=== PATIENT | female | born 1945 | race African-American/Black ===

== ENCOUNTER → 2017-09-19 | Outpatient (CLI) | payer MEDICARE, OTHER, MEDICAID | END | disposition home or self-care (01) | LOC: C/S 15:54 | DX: R51 Headache (principal); C85.90 Non-Hodgkin lymphoma, unspecified, unspecified site | CPT/HCPCS: 70450 ==

== ENCOUNTER 2018-02-20 09:54 | Inpatient (IN) | payer MEDICARE, OTHER, MEDICAID ==
[2018-02-20] MEDS: IPRATROPIUM (NEB) 0.5 MG/2.5 ML AMP INH (10:15)
[2018-02-20] MEDS: ALBUTEROL 0.5% (NEB) 2.5 MG/0.5 ML AMP INH (10:15)
[2018-02-20] MEDS: SOD CHLORIDE 0.9% 1,000 ML IV ×2 (10:27→14:01)
[2018-02-20 10:36] LABS: AADO2 Arterial 98.6 mmHg (7.0-24.0); Allen Test ACCEPTAB; Arterial Base Excess -0.5 mmol/L (-3.0-3); Arterial Blood Gas Oxygen Sat 98.5 mmHG (95.0-100.0); Arterial COHb 2.1 % (0.0-3.0); Arterial Fraction of Oxyhgb 96.1 % (93.0-99.0); Arterial HCO3 23.8 mmol/L (22.0-26.0); Arterial MetHb 0.3 % (0.0-1.5); Arterial Total Hemglobin 13.1 g/dl (12.0-18.0); Arterial pCO2 38.3 mmhg (35-45); Blood Gas IEPAP 15/5; Blood Gas PS 10; MODE MASK - BIPAP; Site Left Radial
[2018-02-20 10:38] LABS: WHITE BLOOD COUNT 2.7 10^3/ul (4.8-10.8)
[2018-02-20 10:38] LABS: ABNORMAL IP MESSAGE 1; HEMATOCRIT 41.2 % (37.0-47.0); HEMOGLOBIN 13.1 g/dl (12.0-16.0); MEAN CORPUSCULAR HEMOGLOBIN 28.3 pg (29.0-33.0); MEAN CORPUSCULAR HGB CONC 31.8 g/dl (32.0-37.0); MEAN PLATELET VOLUME 11.1 fl (7.4-10.4); PLATELET COUNT 235 10^3/UL (140-415); RED BLOOD COUNT 4.63 10^6/ul (4.20-5.40); RED CELL DISTRIBUTION WIDTH 14.1 % (11.5-14.5)
[2018-02-20 10:40] LABS: ADD MAN DIFF? YES; POSITIVE DIFF @See below
[2018-02-20 10:57] LABS: INR 0.99; PROTIME 13.2 Sec (11.9-14.9)
[2018-02-20 10:58] LABS: PARTIAL THROMBOPLASTIN TIME 31.9 Sec (23.0-35.0)
[2018-02-20 11:02] LABS: ANISOCYTOSIS 1+ (0-0); BASOPHILS % (M) 3 % (0-2); EOSINOPHILS % (M) 5 % (0-7); LYMPHOCYTES #M 0.7 10^3/ul (0.8-2.9); LYMPHOCYTES % (M) 29 % (15-51); MICROCYTOSIS 1+ (0-0); MONOCYTE #M 0.4 10^3/ul (0.3-0.9); MONOCYTES % (M) 18 % (0-11); PLATELET ESTIMATE NORMAL; REACTIVE LYMPHOCYTES #M 0.1 10^3/ul (0.0-0.0); REACTIVE LYMPHOCYTES% (M) 7 % (0-0); SEGMENTED NEUTROPHILS (M) % 38 % (39-77); SMUDGE%M 19 % (0-0)
[2018-02-20 11:04] LABS: ALANINE AMINOTRANSFERASE 20 IU/L (13-69); ALBUMIN 3.5 g/dl (3.3-4.9); ALBUMIN/GLOBULIN RATIO 1.12; AMYLASE 57 U/L (11-123); ANION GAP 12 (5-13); ASPARTATE AMINO TRANSFERASE 32 IU/L (15-46); BILIRUBIN,INDIRECT 0.1 mg/dl (0-1.1); BILIRUBIN,TOTAL 0.1 mg/dl (0.2-1.3); BLOOD UREA NITROGEN 25 mg/dl (7-20); CALCIUM 10.2 mg/dl (8.4-10.2); CARBON DIOXIDE 27 mmol/L (21-31); CHLORIDE 104 mmol/L (97-110); GLUCOSE 130 mg/dl (70-220); LIPASE 59 U/L (23-300); POTASSIUM 3.8 mmol/L (3.5-5.1); SODIUM 143 mmol/L (135-144); TOTAL PROTEIN 6.6 g/dl (6.1-8.1)
[2018-02-20 11:07] LABS: ALKALINE PHOSPHATASE < 20 IU/L (42-121)
[2018-02-20 11:16] LABS: TROPONIN-I < 0.012 ng/ml (0.000-0.120)
[2018-02-20 11:57] LABS: ADD UMIC YES; UR ASCORBIC ACID NEGATIVE (NEGATIVE); UR BACTERIA FEW /HPF (NONE SEEN); UR BILIRUBIN (Dip) NEGATIVE (NEGATIVE); UR BLOOD (Dip) NEGATIVE (NEGATIVE); UR CLARITY SLIGHTLY CLOUDY (CLEAR); UR COLOR STRAW (YELLOW); UR GLUCOSE (Dip) NEGATIVE (NEGATIVE); UR KETONES (Dip) NEGATIVE (NEGATIVE); UR LEUKOCYTE ESTERASE (Dip) NEGATIVE Leu/ul (NEGATIVE); UR NITRITE (Dip) NEGATIVE (NEGATIVE); UR RBC 4 /HPF (0-5); UR SPECIFIC GRAVITY (Dip) 1.008 (1.003-1.030); UR SQUAMOUS EPITHELIAL CELL FEW /HPF (FEW); UR TOTAL PROTEIN (Dip) 1+ mg/dl (NEGATIVE); UR UROBILINOGEN (Dip) NEGATIVE (NEGATIVE); UR WBC 1 /HPF (0-5)
[2018-02-20] MEDS: HYDROmorphONE 2 MG/ML SYG IV (12:12)
[2018-02-20] MEDS: ONDANSETRON 4 MG INJ IV (12:12)
[2018-02-20] MEDS: LEVOFLOXACIN 750MG/D5W (PMX) 150 ML IVPB (14:02)
[2018-02-20] MEDS ORDERED: NACL 0.9% 3 ML SYG IV (15:30)
[2018-02-20] MEDS: VANCOMYCIN 1 GM (PMX) 250 ML IVPB (15:56)
[2018-02-20] MEDS ORDERED: CREON (24K-76K-120K) 1 CAP PO (17:30)
[2018-02-20] MEDS: CREON (12k-38k-60k) 1 CAP PO (17:45)
[2018-02-20] MEDS: LEVALBUTEROL (NEB) 0.63 MG/3 ML AMP HHN (20:45)
[2018-02-20] MEDS: ROPINIROLE 0.25 MG TAB PO (20:59)
[2018-02-20] MEDS: morphine 2 MG INJ IV (22:13)
[2018-02-21] MEDS: LEVALBUTEROL (NEB) 0.63 MG/3 ML AMP HHN ×2 (03:30→14:09)
[2018-02-21] MEDS: morphine 2 MG INJ IV ×3 (04:47→21:27)
[2018-02-21 05:30] LABS: WHITE BLOOD COUNT 2.4 10^3/ul (4.8-10.8)
[2018-02-21 05:30] LABS: ABNORMAL IP MESSAGE 1; HEMOGLOBIN 10.4 g/dl (12.0-16.0); MEAN CORPUSCULAR HEMOGLOBIN 28.3 pg (29.0-33.0); MEAN CORPUSCULAR HGB CONC 31.5 g/dl (32.0-37.0); MEAN CORPUSCULAR VOLUME 89.9 fl (82.0-101.0); MEAN PLATELET VOLUME 11.1 fl (7.4-10.4); PLATELET COUNT 184 10^3/UL (140-415); RED BLOOD COUNT 3.67 10^6/ul (4.20-5.40); RED CELL DISTRIBUTION WIDTH 14.2 % (11.5-14.5)
[2018-02-21 05:48] LABS: ADD MAN DIFF? YES; POSITIVE DIFF @See below
[2018-02-21 06:01] LABS: ANION GAP 6 (5-13); BLOOD UREA NITROGEN 20 mg/dl (7-20); CALCIUM 9.1 mg/dl (8.4-10.2); CARBON DIOXIDE 25 mmol/L (21-31); CHLORIDE 111 mmol/L (97-110); CREATININE 0.97 mg/dl (0.44-1.00); GLUCOSE 90 mg/dl (70-220); SODIUM 142 mmol/L (135-144)
[2018-02-21] MEDS: PANTOPRAZOLE (EC) 40 MG TAB PO (06:02)
[2018-02-21 07:10] LABS: ANISOCYTOSIS 1+ (0-0); BAND NEUTROPHILS #M 0.2 10^3/ul (0.0-0.6); BAND NEUTROPHILS % (M) 9 % (0-4); BASOPHILS % (M) 2 % (0-2); EOSINOPHILS % (M) 1 % (0-7); GIANT THROMBO% (M) 5 % (0-0); LYMPHOCYTES #M 0.5 10^3/ul (0.8-2.9); LYMPHOCYTES % (M) 22 % (15-51); MICROCYTOSIS 1+ (0-0); MONOCYTE #M 0.4 10^3/ul (0.3-0.9); MONOCYTES % (M) 18 % (0-11); MYELOCYTES % (M) 3 % (0-0); OVALOCYTES 1+ (0-0); PLATELET ESTIMATE NORMAL; POIKILOCYTOSIS 2+ (0-0); SEG NEUT #M 1.1 10^3/ul (1.6-7.5); SEGMENTED NEUTROPHILS (M) % 45 % (39-77); SMUDGE%M 8 % (0-0)
[2018-02-21] MEDS: LOSARTAN 50 MG TAB PO (08:24)
[2018-02-21] MEDS: CREON (12k-38k-60k) 1 CAP PO ×3 (08:24→17:59)
[2018-02-21] MEDS: MIRTAZAPINE 15 MG TAB PO (08:25)
[2018-02-21] MEDS: ROPINIROLE 0.25 MG TAB PO ×2 (08:25→20:24)
[2018-02-21] MEDS: AMLODIPINE 10 MG TAB PO (08:26)
[2018-02-21] MEDS: ENOXAPARIN 30 MG/0.3 ML SYG SC (08:27)
[2018-02-21] MEDS ORDERED: AMLODIPINE BES PO (09:00)
[2018-02-21] MEDS ORDERED: [UNRECOGNIZED DRUG - OTHER] PO (09:00)
[2018-02-21] MEDS ORDERED: OLMESARTAN MED PO (09:00)
[2018-02-21] MEDS: LIDOCAINE 1% (MPF) 5 ML VIAL (12:25)
[2018-02-21 13:35] LABS: FLD MN% 68.1 %; FLD PMN% 31.9 %; FLD RBC 66000 /uL; FLD WBC 461 /cmm
[2018-02-21 13:40] LABS: FLUID LD 1360 U/L; FLUID TOTAL PROTEIN 4.4 g/dl; FLUID TYPE THORACENTESIS FLUID
[2018-02-21 13:41] LABS: FLUID GLUCOSE 50 mg/dl; FLUID TYPE THORACENTESIS FLUID
[2018-02-21 13:55] LABS: FLD TYPE PLEURAL
[2018-02-21 13:55] LABS: FLD CLARITY BLOODY; FLD COLOR RED
[2018-02-21] MEDS: IOHEXOL 14.3 MG(I)/ML (ADULT) BTL PO (14:00)
[2018-02-21] MEDS: IOHEXOL 300MG/ML 150 ML BTL (14:33)
[2018-02-21] MEDS: SOD CHLORIDE 0.9% 100 ML (14:33)
[2018-02-21] MEDS: FLUTICASONE/VILANTEROL 200-25 INH DEVICE INH (17:59)
[2018-02-22] MEDS: LORAZEPAM 2 MG INJ IV (01:25)
[2018-02-22 05:38] LABS: ABNORMAL IP MESSAGE 1; HEMATOCRIT 34.9 % (37.0-47.0); HEMOGLOBIN 11.3 g/dl (12.0-16.0); MEAN CORPUSCULAR HEMOGLOBIN 28.5 pg (29.0-33.0); MEAN CORPUSCULAR HGB CONC 32.4 g/dl (32.0-37.0); MEAN CORPUSCULAR VOLUME 87.9 fl (82.0-101.0); MEAN PLATELET VOLUME 11.3 fl (7.4-10.4); PLATELET COUNT 206 10^3/UL (140-415); RED BLOOD COUNT 3.97 10^6/ul (4.20-5.40); RED CELL DISTRIBUTION WIDTH 14.2 % (11.5-14.5)
[2018-02-22 05:38] LABS: WHITE BLOOD COUNT 2.3 10^3/ul (4.8-10.8)
[2018-02-22] MEDS: PANTOPRAZOLE (EC) 40 MG TAB PO (05:44)
[2018-02-22 05:52] LABS: ADD MAN DIFF? YES; POSITIVE DIFF @See below
[2018-02-22 06:16] LABS: ANION GAP 9 (5-13); BLOOD UREA NITROGEN 18 mg/dl (7-20); CALCIUM 9.6 mg/dl (8.4-10.2); CARBON DIOXIDE 25 mmol/L (21-31); CHLORIDE 109 mmol/L (97-110); CREATININE 0.94 mg/dl (0.44-1.00); GLUCOSE 83 mg/dl (70-220); POTASSIUM 3.5 mmol/L (3.5-5.1); SODIUM 143 mmol/L (135-144)
[2018-02-22] MEDS: CREON (12k-38k-60k) 1 CAP PO ×3 (08:10→17:40)
[2018-02-22] MEDS: FLUTICASONE/VILANTEROL 200-25 INH DEVICE INH (08:38)
[2018-02-22] MEDS: LOSARTAN 50 MG TAB PO (08:39)
[2018-02-22] MEDS: AMLODIPINE 10 MG TAB PO (08:39)
[2018-02-22] MEDS: ROPINIROLE 0.25 MG TAB PO ×2 (08:40→21:49)
[2018-02-22] MEDS: MIRTAZAPINE 15 MG TAB PO (08:40)
[2018-02-22] MEDS: ENOXAPARIN 30 MG/0.3 ML SYG SC (08:49)
[2018-02-22 11:21] LABS: ANISOCYTOSIS 2+ (0-0); BAND NEUTROPHILS #M 0.2 10^3/ul (0.0-0.6); BAND NEUTROPHILS % (M) 12 % (0-4); BASOPHILS % (M) 2 % (0-2); BURR CELLS 3+ (0-0); EOSINOPHILS % (M) 6 % (0-7); GIANT THROMBO% (M) 2 % (0-0); LYMPHOCYTES #M 0.5 10^3/ul (0.8-2.9); LYMPHOCYTES % (M) 22 % (15-51); MICROCYTOSIS 2+ (0-0); MONOCYTE #M 0.2 10^3/ul (0.3-0.9); MONOCYTES % (M) 13 % (0-11); PLATELET ESTIMATE NORMAL; POIKILOCYTOSIS 3+ (0-0); POLYCHROMASIA 1+ (0-0); REACTIVE LYMPHOCYTES% (M) 4 % (0-0); SEG NEUT #M 0.9 10^3/ul (1.6-7.5); SEGMENTED NEUTROPHILS (M) % 41 % (39-77); SMUDGE%M 5 % (0-0); SPHEROCYTES 1+ (0-0)
[2018-02-22] MEDS ORDERED: DOCUSATE SODIUM 100 MG CAP PO (21:00)
[2018-02-22] MEDS: BISACODYL (EC) 5 MG TAB PO (21:49)
[2018-02-22] MEDS: LUBIPROSTONE 8 MCG CAPSULE PO (21:50)
[2018-02-22] MEDS: morphine 2 MG INJ IV (23:33)
[2018-02-23] MEDS: LORAZEPAM 2 MG INJ IV (04:35)
[2018-02-23] MEDS: PANTOPRAZOLE (EC) 40 MG TAB PO (05:49)
[2018-02-23] MEDS: CREON (12k-38k-60k) 1 CAP PO ×3 (07:37→17:57)
[2018-02-23] MEDS: LUBIPROSTONE 8 MCG CAPSULE PO ×2 (08:55→20:45)
[2018-02-23] MEDS: LOSARTAN 50 MG TAB PO (08:57)
[2018-02-23] MEDS: AMLODIPINE 10 MG TAB PO (08:58)
[2018-02-23] MEDS: MIRTAZAPINE 15 MG TAB PO (08:58)
[2018-02-23] MEDS: ROPINIROLE 0.25 MG TAB PO ×2 (08:58→20:45)
[2018-02-23] MEDS: FLUTICASONE/VILANTEROL 200-25 INH DEVICE INH (08:59)
[2018-02-23] MEDS: ENOXAPARIN 30 MG/0.3 ML SYG SC (09:00)
[2018-02-23] MEDS: LEVALBUTEROL (NEB) 0.63 MG/3 ML AMP HHN (09:07)
[2018-02-23] MEDS: BISACODYL (EC) 5 MG TAB PO (17:57)
[2018-02-24] MEDS: LORAZEPAM 2 MG INJ IV (00:13)
[2018-02-24 06:25] LABS: ABNORMAL IP MESSAGE 1; HEMATOCRIT 38.3 % (37.0-47.0); HEMOGLOBIN 12.1 g/dl (12.0-16.0); MEAN CORPUSCULAR HEMOGLOBIN 27.8 pg (29.0-33.0); MEAN CORPUSCULAR HGB CONC 31.6 g/dl (32.0-37.0); MEAN CORPUSCULAR VOLUME 87.8 fl (82.0-101.0); MEAN PLATELET VOLUME 11.4 fl (7.4-10.4); PLATELET COUNT 225 10^3/UL (140-415); RED BLOOD COUNT 4.36 10^6/ul (4.20-5.40); RED CELL DISTRIBUTION WIDTH 13.7 % (11.5-14.5)
[2018-02-24 06:25] LABS: WHITE BLOOD COUNT 2.6 10^3/ul (4.8-10.8)
[2018-02-24] MEDS: PANTOPRAZOLE (EC) 40 MG TAB PO (06:40)
[2018-02-24 06:44] LABS: ADD MAN DIFF? YES; POSITIVE DIFF @See below
[2018-02-24 06:50] LABS: ANION GAP 6 (5-13); BLOOD UREA NITROGEN 20 mg/dl (7-20); CALCIUM 9.4 mg/dl (8.4-10.2); CARBON DIOXIDE 26 mmol/L (21-31); CHLORIDE 112 mmol/L (97-110); CREATININE 1.14 mg/dl (0.44-1.00); GLUCOSE 89 mg/dl (70-220); SODIUM 144 mmol/L (135-144)
[2018-02-24] MEDS: CREON (12k-38k-60k) 1 CAP PO ×3 (07:55→17:55)
[2018-02-24 08:18] LABS: ANISOCYTOSIS 1+ (0-0); BAND NEUTROPHILS % (M) 3 % (0-4); EOSINOPHILS % (M) 2 % (0-7); GIANT THROMBO% (M) 2 % (0-0); LYMPHOCYTES #M 0.7 10^3/ul (0.8-2.9); LYMPHOCYTES % (M) 27 % (15-51); MICROCYTOSIS 1+ (0-0); MONOCYTE #M 0.5 10^3/ul (0.3-0.9); MONOCYTES % (M) 20 % (0-11); PLATELET ESTIMATE NORMAL; SEG NEUT #M 1.2 10^3/ul (1.6-7.5); SEGMENTED NEUTROPHILS (M) % 48 % (39-77); SMUDGE%M 16 % (0-0)
[2018-02-24] MEDS: MIRTAZAPINE 15 MG TAB PO (08:27)
[2018-02-24] MEDS: ROPINIROLE 0.25 MG TAB PO ×2 (08:27→21:02)
[2018-02-24] MEDS: ACETAMINOPHEN 325 MG TAB PO (08:27)
[2018-02-24] MEDS: LOSARTAN 50 MG TAB PO (08:27)
[2018-02-24] MEDS: LUBIPROSTONE 8 MCG CAPSULE PO ×2 (08:27→21:02)
[2018-02-24] MEDS: FLUTICASONE/VILANTEROL 200-25 INH DEVICE INH (08:28)
[2018-02-24] MEDS: AMLODIPINE 10 MG TAB PO (08:28)
[2018-02-24] MEDS: morphine 2 MG INJ IV (08:34)
[2018-02-24] MEDS: ENOXAPARIN 30 MG/0.3 ML SYG SC (08:39)
[2018-02-24] MEDS ORDERED: morphine LIQ (10 MG/5 ML) CUP PO (16:00)
[2018-02-24] MEDS: ONDANSETRON 4 MG INJ IV ×2 (16:49→17:56)
[2018-02-25] MEDS: LORAZEPAM 2 MG INJ IV ×2 (00:58→08:54)
[2018-02-25] MEDS: BISACODYL (EC) 5 MG TAB PO (01:04)
[2018-02-25] MEDS: PANTOPRAZOLE (EC) 40 MG TAB PO (05:32)
[2018-02-25] MEDS: CREON (12k-38k-60k) 1 CAP PO ×3 (07:33→17:06)
[2018-02-25] MEDS: MIRTAZAPINE 15 MG TAB PO (08:32)
[2018-02-25] MEDS: ROPINIROLE 0.25 MG TAB PO ×2 (08:33→20:38)
[2018-02-25] MEDS: LUBIPROSTONE 8 MCG CAPSULE PO ×2 (08:33→20:38)
[2018-02-25] MEDS: ENOXAPARIN 30 MG/0.3 ML SYG SC (08:34)
[2018-02-25] MEDS: FLUTICASONE/VILANTEROL 200-25 INH DEVICE INH (08:37)
[2018-02-25] MEDS: LOSARTAN 50 MG TAB PO (11:38)
[2018-02-25] MEDS: AMLODIPINE 10 MG TAB PO (11:39)
[2018-02-25] MEDS: ONDANSETRON 4 MG INJ IV ×2 (15:12→21:08)
[2018-02-25] MEDS: morphine 2 MG INJ IV (20:38)
[2018-02-26] MEDS: PROMETHAZINE 25 MG TAB PO (00:15)
[2018-02-26] MEDS: morphine 2 MG INJ IV ×3 (01:05→20:07)
[2018-02-26] MEDS: ONDANSETRON 4 MG INJ IV ×2 (05:08→20:07)
[2018-02-26] MEDS: PANTOPRAZOLE (EC) 40 MG TAB PO (05:08)
[2018-02-26 05:37] LABS: ABNORMAL IP MESSAGE 1; HEMATOCRIT 37.3 % (37.0-47.0); MEAN CORPUSCULAR HEMOGLOBIN 28.2 pg (29.0-33.0); MEAN CORPUSCULAR HGB CONC 32.2 g/dl (32.0-37.0); MEAN CORPUSCULAR VOLUME 87.6 fl (82.0-101.0); MEAN PLATELET VOLUME 10.7 fl (7.4-10.4); PLATELET COUNT 222 10^3/UL (140-415); RED BLOOD COUNT 4.26 10^6/ul (4.20-5.40); RED CELL DISTRIBUTION WIDTH 13.9 % (11.5-14.5)
[2018-02-26 05:37] LABS: WHITE BLOOD COUNT 3.4 10^3/ul (4.8-10.8)
[2018-02-26 05:38] LABS: ADD MAN DIFF? YES; POSITIVE DIFF @See below
[2018-02-26 05:56] LABS: ANION GAP 8 (5-13); BLOOD UREA NITROGEN 25 mg/dl (7-20); CALCIUM 9.3 mg/dl (8.4-10.2); CARBON DIOXIDE 23 mmol/L (21-31); CHLORIDE 112 mmol/L (97-110); CREATININE 1.42 mg/dl (0.44-1.00); GLUCOSE 89 mg/dl (70-220); POTASSIUM 3.8 mmol/L (3.5-5.1); SODIUM 143 mmol/L (135-144)
[2018-02-26 07:20] LABS: ANISOCYTOSIS 2+ (0-0); BAND NEUTROPHILS % (M) 2 % (0-4); BASOPHILS % (M) 2 % (0-2); BURR CELLS 1+ (0-0); EOSINOPHILS % (M) 3 % (0-7); LYMPHOCYTES #M 0.8 10^3/ul (0.8-2.9); LYMPHOCYTES % (M) 26 % (15-51); MICROCYTOSIS 1+ (0-0); MONOCYTE #M 0.3 10^3/ul (0.3-0.9); MONOCYTES % (M) 9 % (0-11); OVALOCYTES 1+ (0-0); PLATELET ESTIMATE NORMAL; POIKILOCYTOSIS 2+ (0-0); POLYCHROMASIA 1+ (0-0); REACTIVE LYMPHOCYTES% (M) 1 % (0-0); SEG NEUT #M 1.9 10^3/ul (1.6-7.5); SEGMENTED NEUTROPHILS (M) % 57 % (39-77); SMUDGE%M 4 % (0-0)
[2018-02-26] MEDS: CREON (12k-38k-60k) 1 CAP PO ×3 (07:40→16:57)
[2018-02-26] MEDS: MIRTAZAPINE 15 MG TAB PO (08:49)
[2018-02-26] MEDS: LUBIPROSTONE 8 MCG CAPSULE PO ×2 (08:50→20:07)
[2018-02-26] MEDS: LOSARTAN 50 MG TAB PO (08:51)
[2018-02-26] MEDS: ROPINIROLE 0.25 MG TAB PO ×2 (08:51→20:06)
[2018-02-26] MEDS: AMLODIPINE 10 MG TAB PO (08:51)
[2018-02-26] MEDS: FLUTICASONE/VILANTEROL 200-25 INH DEVICE INH (08:54)
[2018-02-26] MEDS: ENOXAPARIN 30 MG/0.3 ML SYG SC (09:10)
[2018-02-26] MEDS: LEVALBUTEROL (NEB) 0.63 MG/3 ML AMP HHN ×2 (11:27→16:39)
[2018-02-26] MEDS: LORAZEPAM 2 MG INJ IV ×3 (11:50→23:41)
[2018-02-27] MEDS: morphine 2 MG INJ IV ×4 (00:36→19:41)
[2018-02-27] MEDS: ONDANSETRON 4 MG INJ IV (05:04)
[2018-02-27] MEDS: PANTOPRAZOLE (EC) 40 MG TAB PO (05:07)
[2018-02-27] MEDS: CREON (12k-38k-60k) 1 CAP PO ×3 (09:01→17:31)
[2018-02-27] MEDS: ROPINIROLE 0.25 MG TAB PO ×2 (09:01→20:55)
[2018-02-27] MEDS: MIRTAZAPINE 15 MG TAB PO (09:02)
[2018-02-27] MEDS: LUBIPROSTONE 8 MCG CAPSULE PO ×2 (09:02→20:55)
[2018-02-27] MEDS: AMLODIPINE 10 MG TAB PO (09:02)
[2018-02-27] MEDS: LOSARTAN 50 MG TAB PO (09:02)
[2018-02-27] MEDS: ENOXAPARIN 30 MG/0.3 ML SYG SC (09:27)
[2018-02-27] MEDS: FLUTICASONE/VILANTEROL 200-25 INH DEVICE INH (09:27)
[2018-02-27] MEDS: LORAZEPAM 2 MG INJ IV (14:26)
[2018-02-27] MEDS: ACETAMINOPHEN 325 MG TAB PO (15:33)
[2018-02-27] MEDS: LEVALBUTEROL (NEB) 0.63 MG/3 ML AMP HHN ×2 (15:56→21:02)
[2018-02-28] MEDS: morphine 2 MG INJ IV ×5 (00:39→22:29)
[2018-02-28] MEDS: PANTOPRAZOLE (EC) 40 MG TAB PO (05:04)
[2018-02-28] MEDS: CREON (12k-38k-60k) 1 CAP PO ×3 (06:13→17:22)
[2018-02-28] MEDS: FLUTICASONE/VILANTEROL 200-25 INH DEVICE INH (09:00)
[2018-02-28] MEDS: LEVALBUTEROL (NEB) 0.63 MG/3 ML AMP HHN ×2 (10:04→14:05)
[2018-02-28] MEDS: AMLODIPINE 10 MG TAB PO (10:06)
[2018-02-28] MEDS: LOSARTAN 50 MG TAB PO (10:06)
[2018-02-28] MEDS: LUBIPROSTONE 8 MCG CAPSULE PO ×2 (10:07→20:29)
[2018-02-28] MEDS: ROPINIROLE 0.25 MG TAB PO ×2 (10:07→20:29)
[2018-02-28] MEDS: MIRTAZAPINE 15 MG TAB PO (10:07)
[2018-02-28 11:18] LABS: ANION GAP 7 (5-13); BLOOD UREA NITROGEN 26 mg/dl (7-20); CALCIUM 9.4 mg/dl (8.4-10.2); CARBON DIOXIDE 25 mmol/L (21-31); CHLORIDE 108 mmol/L (97-110); CREATININE 1.15 mg/dl (0.44-1.00); GLUCOSE 89 mg/dl (70-220); POTASSIUM 4.2 mmol/L (3.5-5.1); SODIUM 140 mmol/L (135-144)
[2018-02-28] MEDS: LORAZEPAM 2 MG INJ IV ×2 (14:45→18:44)
[2018-02-28] MEDS ORDERED: LIDOCAINE 2% (MDV) 20 ML INJ (15:47)
[2018-02-28] MEDS ORDERED: SOD CHLORIDE 0.9% 500 ML (15:47)
[2018-02-28] MEDS ORDERED: morphine LIQ (10 MG/5 ML) CUP PO (18:00)
[2018-02-28] MEDS: ONDANSETRON 4 MG INJ IV (20:29)
[2018-02-28] MEDS: ACETAMINOPHEN 325 MG TAB PO (23:52)
[2018-03-01] MEDS: morphine 2 MG INJ IV ×5 (01:30→16:25)
[2018-03-01] MEDS: ONDANSETRON 4 MG INJ IV ×2 (05:00→19:49)
[2018-03-01] MEDS: PANTOPRAZOLE (EC) 40 MG TAB PO (05:02)
[2018-03-01 06:15] LABS: ANION GAP 8 (5-13); BLOOD UREA NITROGEN 24 mg/dl (7-20); CALCIUM 9.6 mg/dl (8.4-10.2); CARBON DIOXIDE 25 mmol/L (21-31); CHLORIDE 109 mmol/L (97-110); CREATININE 1.29 mg/dl (0.44-1.00); GLUCOSE 80 mg/dl (70-220); POTASSIUM 4.3 mmol/L (3.5-5.1); SODIUM 142 mmol/L (135-144)
[2018-03-01] MEDS: CREON (12k-38k-60k) 1 CAP PO ×3 (07:59→17:56)
[2018-03-01] MEDS: LUBIPROSTONE 8 MCG CAPSULE PO ×2 (08:02→19:47)
[2018-03-01] MEDS: MIRTAZAPINE 15 MG TAB PO (08:02)
[2018-03-01] MEDS: ROPINIROLE 0.25 MG TAB PO ×2 (08:02→19:46)
[2018-03-01] MEDS: AMLODIPINE 10 MG TAB PO (08:04)
[2018-03-01] MEDS: BISACODYL (EC) 5 MG TAB PO (08:04)
[2018-03-01] MEDS: LOSARTAN 50 MG TAB PO (08:05)
[2018-03-01] MEDS: LORAZEPAM 2 MG INJ IV ×2 (10:00→17:56)
[2018-03-01] MEDS: FLUTICASONE/VILANTEROL 200-25 INH DEVICE INH (10:00)
[2018-03-01] MEDS: DOCUSATE SODIUM 100 MG CAP PO ×2 (12:52→19:48)
[2018-03-01] MEDS: morphine (ER) 30 MG TAB PO ×2 (12:52→19:48)
[2018-03-01] MEDS: HYDROCODONE/APAP (5/325) TAB PO (15:12)
[2018-03-02] MEDS: morphine 2 MG INJ IV ×4 (01:37→23:08)
[2018-03-02] MEDS: PANTOPRAZOLE (EC) 40 MG TAB PO (06:06)
[2018-03-02] MEDS: morphine (ER) 30 MG TAB PO ×2 (06:06→20:31)
[2018-03-02] MEDS: CREON (12k-38k-60k) 1 CAP PO ×3 (06:08→18:28)
[2018-03-02] MEDS: LUBIPROSTONE 8 MCG CAPSULE PO ×2 (08:18→20:32)
[2018-03-02] MEDS: MIRTAZAPINE 15 MG TAB PO (08:18)
[2018-03-02] MEDS: AMLODIPINE 10 MG TAB PO (08:19)
[2018-03-02] MEDS: DOCUSATE SODIUM 100 MG CAP PO ×2 (08:20→20:31)
[2018-03-02] MEDS: LOSARTAN 50 MG TAB PO (08:20)
[2018-03-02] MEDS: FLUTICASONE/VILANTEROL 200-25 INH DEVICE INH (08:20)
[2018-03-02] MEDS: ROPINIROLE 0.25 MG TAB PO ×2 (08:20→22:17)
[2018-03-02 14:01] LABS: ANION GAP 6 (5-13); BLOOD UREA NITROGEN 22 mg/dl (7-20); CALCIUM 9.6 mg/dl (8.4-10.2); CARBON DIOXIDE 31 mmol/L (21-31); CHLORIDE 102 mmol/L (97-110); CREATININE 1.33 mg/dl (0.44-1.00); GLUCOSE 132 mg/dl (70-220); SODIUM 139 mmol/L (135-144)
[2018-03-02 14:06] LABS: POTASSIUM 4.2 mmol/L (3.5-5.1)
[2018-03-02] MEDS: ONDANSETRON 4 MG INJ IV (20:31)
[2018-03-03] MEDS: ONDANSETRON 4 MG INJ IV ×2 (02:48→09:06)
[2018-03-03] MEDS: LEVALBUTEROL (NEB) 0.63 MG/3 ML AMP HHN ×2 (05:18→22:15)
[2018-03-03] MEDS: CREON (12k-38k-60k) 1 CAP PO ×3 (05:40→17:33)
[2018-03-03] MEDS: PANTOPRAZOLE (EC) 40 MG TAB PO (05:40)
[2018-03-03] MEDS: morphine 2 MG INJ IV ×3 (05:41→21:45)
[2018-03-03 07:05] LABS: ANION GAP 6 (5-13); BLOOD UREA NITROGEN 26 mg/dl (7-20); CALCIUM 9.8 mg/dl (8.4-10.2); CARBON DIOXIDE 31 mmol/L (21-31); CHLORIDE 101 mmol/L (97-110); CREATININE 1.36 mg/dl (0.44-1.00); GLUCOSE 99 mg/dl (70-220); POTASSIUM 4.8 mmol/L (3.5-5.1); SODIUM 138 mmol/L (135-144)
[2018-03-03] MEDS: morphine (ER) 30 MG TAB PO ×2 (09:09→20:15)
[2018-03-03] MEDS: FLUTICASONE/VILANTEROL 200-25 INH DEVICE INH (09:11)
[2018-03-03] MEDS: DOCUSATE SODIUM 100 MG CAP PO ×2 (09:12→20:13)
[2018-03-03] MEDS: LUBIPROSTONE 8 MCG CAPSULE PO ×2 (09:12→20:13)
[2018-03-03] MEDS: LOSARTAN 50 MG TAB PO (09:13)
[2018-03-03] MEDS: MIRTAZAPINE 15 MG TAB PO (09:14)
[2018-03-03] MEDS: AMLODIPINE 10 MG TAB PO (09:14)
[2018-03-03] MEDS: ROPINIROLE 0.25 MG TAB PO ×2 (09:14→20:13)
[2018-03-03] MEDS: PROMETHAZINE 25 MG TAB PO (12:21)
[2018-03-04] MEDS: PANTOPRAZOLE (EC) 40 MG TAB PO (05:24)
[2018-03-04 06:23] LABS: WHITE BLOOD COUNT 4.6 10^3/ul (4.8-10.8)
[2018-03-04 06:23] LABS: ABNORMAL IP MESSAGE 1; HEMATOCRIT 34.4 % (37.0-47.0); HEMOGLOBIN 10.5 g/dl (12.0-16.0); MEAN CORPUSCULAR HEMOGLOBIN 27.9 pg (29.0-33.0); MEAN CORPUSCULAR HGB CONC 30.5 g/dl (32.0-37.0); MEAN CORPUSCULAR VOLUME 91.2 fl (82.0-101.0); MEAN PLATELET VOLUME 10.8 fl (7.4-10.4); PLATELET COUNT 304 10^3/UL (140-415); RED BLOOD COUNT 3.77 10^6/ul (4.20-5.40); RED CELL DISTRIBUTION WIDTH 14.1 % (11.5-14.5)
[2018-03-04 06:30] LABS: ADD MAN DIFF? YES; POSITIVE DIFF @See below
[2018-03-04 07:02] LABS: ANION GAP 3 (5-13); BLOOD UREA NITROGEN 33 mg/dl (7-20); CALCIUM 9.5 mg/dl (8.4-10.2); CARBON DIOXIDE 28 mmol/L (21-31); CHLORIDE 106 mmol/L (97-110); CREATININE 1.98 mg/dl (0.44-1.00); GLUCOSE 84 mg/dl (70-220); SODIUM 137 mmol/L (135-144)
[2018-03-04] MEDS: CREON (12k-38k-60k) 1 CAP PO ×3 (07:35→17:59)
[2018-03-04 07:38] LABS: ANISOCYTOSIS 2+ (0-0); BAND NEUTROPHILS #M 0.1 10^3/ul (0.0-0.6); BAND NEUTROPHILS % (M) 4 % (0-4); BURR CELLS 1+ (0-0); EOSINOPHILS % (M) 3 % (0-7); GIANT THROMBO% (M) 2 % (0-0); LYMPHOCYTES #M 0.4 10^3/ul (0.8-2.9); LYMPHOCYTES % (M) 10 % (15-51); MICROCYTOSIS 2+ (0-0); MONOCYTE #M 0.4 10^3/ul (0.3-0.9); MONOCYTES % (M) 10 % (0-11); PLATELET ESTIMATE NORMAL; POIKILOCYTOSIS 1+ (0-0); REACTIVE LYMPHOCYTES #M 0.4 10^3/ul (0.0-0.0); REACTIVE LYMPHOCYTES% (M) 9 % (0-0); SEG NEUT #M 2.9 10^3/ul (1.6-7.5); SEGMENTED NEUTROPHILS (M) % 64 % (39-77); SMUDGE%M 3 % (0-0)
[2018-03-04] MEDS: morphine (ER) 30 MG TAB PO ×2 (08:24→20:33)
[2018-03-04] MEDS: AMLODIPINE 10 MG TAB PO (08:24)
[2018-03-04] MEDS: ROPINIROLE 0.25 MG TAB PO ×2 (08:24→20:33)
[2018-03-04] MEDS: LOSARTAN 50 MG TAB PO (08:24)
[2018-03-04] MEDS: MIRTAZAPINE 15 MG TAB PO (08:24)
[2018-03-04] MEDS: FLUTICASONE/VILANTEROL 200-25 INH DEVICE INH (08:25)
[2018-03-04] MEDS: DOCUSATE SODIUM 100 MG CAP PO ×2 (08:25→20:33)
[2018-03-04] MEDS: LUBIPROSTONE 8 MCG CAPSULE PO ×2 (08:26→20:33)
[2018-03-04] MEDS: morphine 2 MG INJ IV ×2 (10:30→21:37)
[2018-03-04] MEDS: DEXTROSE 5%-0.45% NACL 1,000 ML IV (20:32)
[2018-03-04] MEDS: ONDANSETRON 4 MG INJ IV (20:36)
[2018-03-04] MEDS: LEVALBUTEROL (NEB) 0.63 MG/3 ML AMP HHN (21:46)
[2018-03-05] MEDS: ONDANSETRON 4 MG INJ IV ×2 (02:36→08:20)
[2018-03-05 06:14] LABS: ABNORMAL IP MESSAGE 1; HEMATOCRIT 35.3 % (37.0-47.0); MEAN CORPUSCULAR HEMOGLOBIN 27.8 pg (29.0-33.0); MEAN CORPUSCULAR HGB CONC 31.2 g/dl (32.0-37.0); MEAN CORPUSCULAR VOLUME 89.1 fl (82.0-101.0); MEAN PLATELET VOLUME 10.8 fl (7.4-10.4); PLATELET COUNT 345 10^3/UL (140-415); RED BLOOD COUNT 3.96 10^6/ul (4.20-5.40)
[2018-03-05] MEDS: PANTOPRAZOLE (EC) 40 MG TAB PO (06:16)
[2018-03-05 06:21] LABS: POSITIVE DIFF @See below
[2018-03-05 06:22] LABS: ADD MAN DIFF? YES
[2018-03-05 06:42] LABS: ANION GAP 9 (5-13); BLOOD UREA NITROGEN 28 mg/dl (7-20); CALCIUM 9.9 mg/dl (8.4-10.2); CARBON DIOXIDE 30 mmol/L (21-31); CHLORIDE 102 mmol/L (97-110); CREATININE 1.38 mg/dl (0.44-1.00); GLUCOSE 113 mg/dl (70-220); POTASSIUM 4.8 mmol/L (3.5-5.1); SODIUM 141 mmol/L (135-144)
[2018-03-05] MEDS: FLUTICASONE/VILANTEROL 200-25 INH DEVICE INH (08:19)
[2018-03-05] MEDS: morphine (ER) 30 MG TAB PO ×3 (08:20→23:11)
[2018-03-05] MEDS: LUBIPROSTONE 8 MCG CAPSULE PO ×2 (08:20→20:35)
[2018-03-05] MEDS: CREON (12k-38k-60k) 1 CAP PO ×3 (08:20→17:53)
[2018-03-05] MEDS: ROPINIROLE 0.25 MG TAB PO ×2 (08:21→20:34)
[2018-03-05] MEDS: DEXTROSE 5%-0.45% NACL 1,000 ML IV (08:21)
[2018-03-05] MEDS: MIRTAZAPINE 15 MG TAB PO (08:21)
[2018-03-05] MEDS: DOCUSATE SODIUM 100 MG CAP PO ×2 (08:21→20:34)
[2018-03-05] MEDS: PROMETHAZINE 25 MG TAB PO (08:21)
[2018-03-05 08:27] LABS: ANISOCYTOSIS 2+ (0-0); BAND NEUTROPHILS #M 0.3 10^3/ul (0.0-0.6); BAND NEUTROPHILS % (M) 6 % (0-4); BASOPHIL #M 0.1 10^3/ul (0.0-0.0); BASOPHILS % (M) 2 % (0-2); EOSINOPHILS % (M) 2 % (0-7); ERYTHROBLAST% (NRBC) (M) 1 % (0-0); GIANT THROMBO% (M) 1 % (0-0); LYMPHOCYTES #M 0.3 10^3/ul (0.8-2.9); LYMPHOCYTES % (M) 7 % (15-51); MICROCYTOSIS 2+ (0-0); MONOCYTE #M 0.2 10^3/ul (0.3-0.9); MONOCYTES % (M) 4 % (0-11); OVALOCYTES 1+ (0-0); PLATELET ESTIMATE NORMAL; POIKILOCYTOSIS 2+ (0-0); POLYCHROMASIA 1+ (0-0); REACTIVE LYMPHOCYTES #M 0.1 10^3/ul (0.0-0.0); REACTIVE LYMPHOCYTES% (M) 3 % (0-0); SEG NEUT #M 3.8 10^3/ul (1.6-7.5); SEGMENTED NEUTROPHILS (M) % 76 % (39-77); SMUDGE%M 5 % (0-0); SPHEROCYTES 1+ (0-0)
[2018-03-05] MEDS: LOSARTAN 50 MG TAB PO (10:25)
[2018-03-05] MEDS: AMLODIPINE 10 MG TAB PO (10:25)
[2018-03-05] MEDS: HYDROCODONE/APAP (5/325) TAB PO (17:53)
[2018-03-05] MEDS: METOCLOPRAMIDE 10 MG INJ IV ×2 (17:53→23:11)
[2018-03-05] MEDS: morphine 2 MG INJ IV (17:59)
[2018-03-06] MEDS: DEXTROSE 5%-0.45% NACL 1,000 ML IV ×3 (04:50→21:25)
[2018-03-06] MEDS: METOCLOPRAMIDE 10 MG INJ IV ×4 (05:55→23:49)
[2018-03-06] MEDS: PANTOPRAZOLE (EC) 40 MG TAB PO (05:55)
[2018-03-06] MEDS: CREON (12k-38k-60k) 1 CAP PO ×3 (06:03→18:01)
[2018-03-06] MEDS: ONDANSETRON 4 MG INJ IV (08:25)
[2018-03-06] MEDS: LUBIPROSTONE 8 MCG CAPSULE PO ×2 (08:26→21:25)
[2018-03-06] MEDS: MIRTAZAPINE 15 MG TAB PO (08:26)
[2018-03-06] MEDS: DOCUSATE SODIUM 100 MG CAP PO ×2 (08:26→21:24)
[2018-03-06] MEDS: ROPINIROLE 0.25 MG TAB PO ×2 (08:26→21:24)
[2018-03-06] MEDS: LOSARTAN 50 MG TAB PO (08:27)
[2018-03-06] MEDS: AMLODIPINE 10 MG TAB PO (08:27)
[2018-03-06] MEDS: FLUTICASONE/VILANTEROL 200-25 INH DEVICE INH (08:28)
[2018-03-06] MEDS: morphine (ER) 30 MG TAB PO ×2 (08:29→21:25)
[2018-03-06] MEDS: morphine 2 MG INJ IV (18:44)
[2018-03-07] MEDS: morphine 2 MG INJ IV ×2 (00:57→14:47)
[2018-03-07] MEDS: DEXTROSE 5%-0.45% NACL 1,000 ML IV ×2 (02:16→14:54)
[2018-03-07] MEDS: PANTOPRAZOLE (EC) 40 MG TAB PO (05:09)
[2018-03-07] MEDS: METOCLOPRAMIDE 10 MG INJ IV ×2 (05:09→11:49)
[2018-03-07 05:47] LABS: ABNORMAL IP MESSAGE 1; HEMATOCRIT 36.1 % (37.0-47.0); HEMOGLOBIN 11.3 g/dl (12.0-16.0); MEAN CORPUSCULAR HEMOGLOBIN 27.8 pg (29.0-33.0); MEAN CORPUSCULAR HGB CONC 31.3 g/dl (32.0-37.0); MEAN CORPUSCULAR VOLUME 88.7 fl (82.0-101.0); MEAN PLATELET VOLUME 10.7 fl (7.4-10.4); PLATELET COUNT 378 10^3/UL (140-415); RED BLOOD COUNT 4.07 10^6/ul (4.20-5.40); RED CELL DISTRIBUTION WIDTH 13.8 % (11.5-14.5)
[2018-03-07 05:47] LABS: WHITE BLOOD COUNT 4.6 10^3/ul (4.8-10.8)
[2018-03-07] MEDS: CREON (12k-38k-60k) 1 CAP PO ×2 (06:04→11:49)
[2018-03-07 06:28] LABS: ADD MAN DIFF? YES; ANION GAP 9 (5-13); BLOOD UREA NITROGEN 15 mg/dl (7-20); CALCIUM 9.8 mg/dl (8.4-10.2); CARBON DIOXIDE 29 mmol/L (21-31); CHLORIDE 105 mmol/L (97-110); CREATININE 0.95 mg/dl (0.44-1.00); GLUCOSE 124 mg/dl (70-220); POSITIVE DIFF @See below; SODIUM 143 mmol/L (135-144)
[2018-03-07] MEDS: FLUTICASONE/VILANTEROL 200-25 INH DEVICE INH (08:41)
[2018-03-07] MEDS: ROPINIROLE 0.25 MG TAB PO (08:43)
[2018-03-07] MEDS: MIRTAZAPINE 15 MG TAB PO (08:43)
[2018-03-07] MEDS: DOCUSATE SODIUM 100 MG CAP PO (08:43)
[2018-03-07] MEDS: LOSARTAN 50 MG TAB PO (08:43)
[2018-03-07] MEDS: LUBIPROSTONE 8 MCG CAPSULE PO (08:44)
[2018-03-07] MEDS: AMLODIPINE 10 MG TAB PO (08:44)
[2018-03-07] MEDS: morphine (ER) 30 MG TAB PO (08:46)
[2018-03-07 09:17] LABS: ANISOCYTOSIS 2+ (0-0); BAND NEUTROPHILS #M 0.3 10^3/ul (0.0-0.6); BAND NEUTROPHILS % (M) 7 % (0-4); BASOPHILS % (M) 1 % (0-2); BURR CELLS 1+ (0-0); EOSINOPHILS % (M) 4 % (0-7); LYMPHOCYTES #M 0.4 10^3/ul (0.8-2.9); LYMPHOCYTES % (M) 10 % (15-51); MICROCYTOSIS 2+ (0-0); MONOCYTE #M 0.1 10^3/ul (0.3-0.9); MONOCYTES % (M) 3 % (0-11); MYELOCYTES % (M) 1 % (0-0); OVALOCYTES 2+ (0-0); PLATELET ESTIMATE NORMAL; POIKILOCYTOSIS 1+ (0-0); POLYCHROMASIA 2+ (0-0); REACTIVE LYMPHOCYTES% (M) 1 % (0-0); SEG NEUT #M 3.4 10^3/ul (1.6-7.5); SEGMENTED NEUTROPHILS (M) % 73 % (39-77); SMUDGE%M 5 % (0-0)
[2018-03-07] MEDS: BISACODYL 10 MG SUPP PR (13:09)
[2018-03-07] MEDS: BISACODYL (EC) 5 MG TAB PO (15:37)
[2018-03-07] MEDS: LORAZEPAM 2 MG INJ IV (16:45)
== END 2018-03-07 18:23 | DRG 840 ==
LOC: E/R 09:54 → 6WM 12:07
PROVIDERS: Internal Medicine
PROC: 0B9P30Z Drainage of Left Pleura with Drainage Device, Percutaneous Approach (ICD-10-PCS; principal; 2018-02-28 15:00)
PROC: 0W9B3ZZ Drainage of Left Pleural Cavity, Percutaneous Approach (ICD-10-PCS; 2018-02-28 15:32)
PROC: 5A09357 Assistance with Respiratory Ventilation, Less than 24 Consecutive Hours, Continuous Positive Airway Pressure (ICD-10-PCS; 2018-02-28 15:32)
PROC: 4A033R1 Measurement of Arterial Saturation, Peripheral, Percutaneous Approach (ICD-10-PCS; 2018-02-28 15:32)
DX: C82.90 Follicular lymphoma, unspecified, unspecified site (principal); J96.01 Acute respiratory failure with hypoxia; J91.0 Malignant pleural effusion; N17.9 Acute kidney failure, unspecified; I10 Essential (primary) hypertension; F17.210 Nicotine dependence, cigarettes, uncomplicated; J43.9 Emphysema, unspecified; E03.9 Hypothyroidism, unspecified; Z98.1 Arthrodesis status; G25.81 Restless legs syndrome; K86.81 Exocrine pancreatic insufficiency; E78.00 Pure hypercholesterolemia, unspecified; D64.9 Anemia, unspecified; Z79.82 Long term (current) use of aspirin; Z85.118 Personal history of other malignant neoplasm of bronchus and lung; Z88.0 Allergy status to penicillin; Z90.2 Acquired absence of lung [part of]; Z90.710 Acquired absence of both cervix and uterus
CPT/HCPCS: 32555; 36415; 36600; 70552; 71045; 71260; 74177; 75982; 76942; 80048; 80053; 81001; 82150; 82803; 82945; 83605; 83615; 83690; 84157; 84484; 85025; 85610; 85730; 86850; 86870; 86900; 86901; 86902; 87040; 87070; 87102; 87116; 88104; 88305; 88341; 88342; 89051; 93005; 94640; 94644; 94660; 94664; 99291-25